=== PATIENT | male | born 1975 | race Caucasian/White ===

== ENCOUNTER 2017-05-25 07:22 | Emergency (ER) | payer OTHER, BC ==
[2017-05-25] MEDS ORDERED: Metoclopramide 10 MG/2 ML SDV IVPUSH ONE (07:36)
[2017-05-25] MEDS ORDERED: HYDROmorphone 1 MG/ML Syringe IVPUSH ONE ×3 (07:36→07:43)
--- NOTE | 2017-05-25 07:41 | EDM.PDOC ---
ED HPI GENERAL MEDICAL PROBLEM - General Chief Complaint: Lower Extremity Injury/Pain Stated Complaint: [facility] Time Seen by Provider: 05/25/17 07:36 Source of Information: Reports: Patient History Limitations: Reports: No Limitations - History of Present Illness INITIAL COMMENTS - FREE TEXT/NARRATIVE: 41-year-old male reports to the ED per ambulance after slipping and falling on his way into work this morning. States he was about 10 feet with from the door to the building when he slipped on the ice falling backwards with his right leg ending up underneath him when he fell. He has severe pain distal tib-fib and ankle area on the right side. Denies hitting his head or losing consciousness. A coworker aided him up and he was able to hop into the building and light on the floor inside the building until the eminence arrived. No previous injuries or fractures to the right lower extremity. Has a history of hypertension for which he is taking his medications this morning also takes a baby aspirin every day and antidepressant daily. Also takes medication for cholesterol lowering. Onset: Today Onset Date: 05/25/17 Onset Time: 06:55 Duration: Minutes: Location: Reports: Lower Extremity, Right (Right distal tib-fib ankle area.) Quality: Reports: Ache, Throbbing Severity: Severe Improves with: Reports: None Worsens with: Reports: Movement Context: Reports: Trauma (Slipped and fell on ice while walking to work this morning.). 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) (Paramedics were not able to establish an IV and therefore he has not received any analgesia at this time) Right Ankle Pain Score (Numeric/FACES): 6 - Related Data Allergies Allergy/AdvReac Type Severity Reaction Status Date / Time Penicillins Allergy Cannot Verified 05/25/17 07:32 Remember lisinopril AdvReac Cough Verified 05/25/17 07:32 Home Meds: Home Meds Atenolol [Atenolol] 25 mg PO DAILY 05/25/17 [History] oxyCODONE HCl/Acetaminophen [Percocet 5-325 mg Tablet] 1 - 2 each PO Q4H PRN # 24 tablet 05/25/17 [Rx] Past Medical History Cardiovascular History: Reports: High Cholesterol, Hypertension Psychiatric History: Reports: Depression (Currently on antidepressant medication.) Social & Family History - Living Situation & Occupation Living situation: Reports: Occupation: Employed Review of Systems - Review of Systems Review Of Systems: See Below Constitutional: Denies: Chills, Diaphoresis, Fever, Weakness, Other Eyes: Reports: No Symptoms Ears: Reports: No Symptoms Nose: Reports: No Symptoms Mouth/Throat: Reports: No Symptoms Respiratory: Reports: No Symptoms Cardiovascular: Reports: No Symptoms GI/Abdominal: Reports: No Symptoms Genitourinary: Reports: No Symptoms Musculoskeletal: Reports: Leg Pain Skin: Reports: No Symptoms (See history pill present illness.) Neurological: Reports: No Symptoms Psychiatric: Reports: No Symptoms ED EXAM, GENERAL - Physical Exam Exam: See Below Exam Limited By: No Limitations General Appearance: Alert, WD/WN, Moderate Distress (In obvious discomfort.) Head: Atraumatic, Normocephalic Neck: Normal Inspection, Supple, Non-Tender, Full Range of Motion Respiratory/Chest: No Respiratory Distress, Lungs Clear, Normal Breath Sounds, No Accessory Muscle Use, Chest Non-Tender, Other Cardiovascular: Normal Peripheral Pulses, Regular Rate, Rhythm, No Murmur, No Rub, Bradycardia Peripheral Pulses: 2+: Posterior Tibial (L), Posterior Tibial (R), Dorsalis Pedis (L), Dorsalis Pedis (R) GI/Abdominal: Normal Bowel Sounds, Soft, Non-Tender, No Organomegaly, No Abnormal Bruit, No Mass Back Exam: Normal Inspection, Full Range of Motion. No: CVA Tenderness (L), CVA Tenderness (R) Extremities: Other (No apparent injury to the left lower extremity. Right lower extremity shows deformity distal tib-fib and ankle particularly the fibula appears to be fractured. Pulses are present but weak dorsalis pedis. Unable to plantarflex or dorsiflex at the ankle due to pain) Neurological: Alert, Oriented, CN II-XII Intact, Normal Cognition, Normal Gait Psychiatric: Normal Affect, Normal Mood Course - Vital Signs Last Recorded V/S: Last Vital Signs Temp 36.3 C 05/25/17 07:29 Pulse 55 L 05/25/17 07:29 Resp 16 05/25/17 07:29 BP 81/43 L 05/25/17 07:29 Pulse Ox 100 05/25/17 07:29 - Orders/Labs/Meds Orders: Active Orders 24 hr Category Date Time Status EKG Documentation Completion [RC] STAT Care 05/25/17 07:44 Active Dextrose 5%-0.9% NaCl [Dextrose 5%-Normal Saline] 1,000 Med 05/25/17 07:45 Active ml IV ASDIRECTED Medication Orders Dextrose/Sodium Chloride (Dextrose 5%-Normal Saline) 1,000 mls @ 150 mls/hr IV ASDIRECTED LASHELL Last Admin: 05/25/17 07:49 Dose: 150 mls/hr Labs: Laboratory Tests 05/25/17 05/25/17 05/25/17 Range/Units 07:40 07:40 07:40 WBC 6.65 (4.23-9.07) K/mm3 RBC 5.33 (4.63-6.08) M/mm3 Hgb 15.3 (13.7-17.5) gm/L Hct 44.3 (40.1-51.0) % MCV 83.1 (79.0-92.2) fl MCH 28.7 (25.7-32.2) pg MCHC 34.5 (32.2-35.5) g/dl RDW Std Deviation 41.6 (35.1-43.9) fL Plt Count 216 (163-337) K/mm3 MPV 10.3 (9.4-12.3) fl Neutrophils % (Manual) 58 (40-60) % Band Neutrophils % 0 (0-10) % Lymphocytes % (Manual) 36 (20-40) % Atypical Lymphs % 0 % Monocytes % (Manual) 3 (2-10) % Eosinophils % (Manual) 3 (0.8-7.0) % Basophils % (Manual) 0 L (0.2-1.2) Platelet Estimate Adequate RBC Morph Comment Normal PT 10.6 (8.0-13.0) SECONDS INR 0.97 APTT 24 (22-36) SECONDS Sodium 140 (136-145) mEq/L Potassium 3.3 L (3.5-5.1) mEq/L Chloride 102 (98-107) mEq/L Carbon Dioxide 30 (21-32) mEq/L Anion Gap 11.3 (5-15) BUN 15 (7-18) mg/dL Creatinine 1.1 (0.7-1.3) mg/dL Est Cr Clr Drug Dosing 89.41 mL/min Estimated GFR (MDRD) > 60 (>60) mL/min BUN/Creatinine Ratio 13.6 L (14-18) Glucose 102 (74-106) mg/dL Calcium 8.8 (8.5-10.1) mg/dL Total Bilirubin 0.4 (0.2-1.0) mg/dL AST 26 (15-37) U/L ALT 52 (16-63) U/L Alkaline Phosphatase 77 (46-116) U/L Total Protein 7.2 (6.4-8.2) g/dl Albumin 3.3 L (3.4-5.0) g/dl Globulin 3.9 gm/dL Albumin/Globulin Ratio 0.9 L (1-2) Meds: Medications Generic Name Dose Route Start Last Admin Trade Name Freq PRN Reason Stop Dose Admin Dextrose/Sodium Chloride 1,000 mls @ 150 mls/hr 05/25/17 07:45 05/25/17 07:49 Dextrose 5%-Normal Saline IV 150 mls/hr ASDIRECTED LASHELL Administration Discontinued Medications Generic Name Dose Route Start Last Admin Trade Name Freq PRN Reason Stop Dose Admin Hydromorphone HCl 1 mg 05/25/17 07:36 Dilaudid IVPUSH 05/25/17 07:37 ONETIME ONE Hydromorphone HCl 0.5 mg 05/25/17 07:43 05/25/17 07:52 Dilaudid IVPUSH 05/25/17 07:44 Not Given ONETIME ONE Hydromorphone HCl 0.5 mg 05/25/17 07:43 05/25/17 07:52 Dilaudid IVPUSH 05/25/17 07:44 Not Given ONETIME ONE Hydromorphone HCl Confirm 05/25/17 07:50 05/25/17 07:51 Dilaudid Administered 05/25/17 07:51 1 mg Dose Administration 1 mg .ROUTE .STK-MED ONE Metoclopramide HCl 10 mg 05/25/17 07:36 05/25/17 07:50 Reglan IVPUSH 05/25/17 07:37 10 mg ONETIME ONE Administration - Radiology Interpretation Free Text/Narrative:: 41-year-old male slipped and fell on the ice on walk upon walking into work this morning. He landed with his right ankle and foot up underneath his body when he hit the ground. Has pain and deformity to the distal right tib-fib compound fracture. Plan IV D5 normal saline at 150 mils per hour. Routine labs will be collected. X-ray of the right tib-fib and ankle to be obtained will give Dilaudid 1 mg IV and Reglan 10 mg IV for pain and nausea relief. - Re-Assessments/Exams Free Text/Narrative Re-Assessment/Exam: 05/25/17 08:16 x-rays confirm a spiral fractures of the distal fibula and tibia. Position and alignment are good. At this time orthopedic services are not available but Dr. Castellanos will be back tomorrow. Plan will be to immobilize his right tib-fib and ankle in a posterior slab and stirrup orthoglass splint. He will be nonweightbearing crutch walking. We'll see if we get him an appointment with Dr. Castellanos tomorrow. Departure - Departure Time of Disposition: 09:40 Disposition: Home, Self-Care 01 Condition: Fair Clinical Impression: Closed fracture of tibia AND fibula - Discharge Information Prescriptions: oxyCODONE HCl/Acetaminophen [Percocet 5-325 mg Tablet] 1 - 2 each PO Q4H PRN # 24 tablet PRN Reason: pain relief. Instructions: Fibular Fracture Rehab-[facility], Tibial Fracture, Adult Referrals: Cristina Hughes MD [Primary Care Provider] - Forms: ED Department Discharge Additional Instructions: ED HPI GENERAL MEDICAL PROBLEM - General Chief Complaint: Lower Extremity Injury/Pain Stated Complaint: [facility] Time Seen by Provider: 05/25/17 07:36 Source of Information: Reports: Patient History Limitations: Reports: No Limitations - History of Present Illness INITIAL COMMENTS - FREE TEXT/NARRATIVE: 41-year-old male reports to the ED per ambulance after slipping and falling on his way into work this morning. States he was about 10 feet with from the door to the building when he slipped on the ice falling backwards with his right leg ending up underneath him when he fell. He has severe pain distal tib-fib and ankle area on the right side. Denies hitting his head or losing consciousness. A coworker aided him up and he was able to hop into the building and light on the floor inside the building until the eminence arrived. No previous injuries or fractures to the right lower extremity. Has a history of hypertension for which he is taking his medications this morning also takes a baby aspirin every day and antidepressant daily. Also takes medication for cholesterol lowering. Onset: Today Onset Date: 05/25/17 Onset Time: 06:55 Duration: Minutes: Location: Reports: Lower Extremity, Right (Right distal tib-fib ankle area.) Quality: Reports: Ache, Throbbing Severity: Severe Improves with: Reports: None Worsens with: Reports: Movement Context: Reports: Trauma (Slipped and fell on ice while walking to work this morning.). 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) (Paramedics were not able to establish an IV and therefore he has not received any analgesia at this time) Right Ankle Pain Score (Numeric/FACES): 6 - Related Data Allergies Allergy/AdvReac Type Severity Reaction Status Date / Time Penicillins Allergy Cannot Verified 05/25/17 07:32 Remember lisinopril AdvReac Cough Verified 05/25/17 07:32 Home Meds: Home Meds Atenolol [Atenolol] 25 mg PO DAILY 05/25/17 [History] oxyCODONE HCl/Acetaminophen [Percocet 5-325 mg Tablet] 1 - 2 each PO Q4H PRN # 24 tablet 05/25/17 [Rx] Past Medical History Cardiovascular History: Reports: High Cholesterol, Hypertension Psychiatric History: Reports: Depression (Currently on antidepressant medication.) Social & Family History - Living Situation & Occupation Living situation: Reports: Occupation: Employed Review of Systems - Review of Systems Review Of Systems: See Below Constitutional: Denies: Chills, Diaphoresis, Fever, Weakness, Other Eyes: Reports: No Symptoms Ears: Reports: No Symptoms Nose: Reports: No Symptoms Mouth/Throat: Reports: No Symptoms Respiratory: Reports: No Symptoms Cardiovascular: Reports: No Symptoms GI/Abdominal: Reports: No Symptoms Genitourinary: Reports: No Symptoms Musculoskeletal: Reports: Leg Pain Skin: Reports: No Symptoms (See history pill present illness.) Neurological: Reports: No Symptoms Psychiatric: Reports: No Symptoms ED EXAM, GENERAL - Physical Exam Exam: See Below Exam Limited By: No Limitations General Appearance: Alert, WD/WN, Moderate Distress (In obvious discomfort.) Head: Atraumatic, Normocephalic Neck: Normal Inspection, Supple, Non-Tender, Full Range of Motion Respiratory/Chest: No Respiratory Distress, Lungs Clear, Normal Breath Sounds, No Accessory Muscle Use, Chest Non-Tender, Other Cardiovascular: Normal Peripheral Pulses, Regular Rate, Rhythm, No Murmur, No Rub, Bradycardia Peripheral Pulses: 2+: Posterior Tibial (L), Posterior Tibial (R), Dorsalis Pedis (L), Dorsalis Pedis (R) GI/Abdominal: Normal Bowel Sounds, Soft, Non-Tender, No Organomegaly, No Abnormal Bruit, No Mass Back Exam: Normal Inspection, Full Range of Motion. No: CVA Tenderness (L), CVA Tenderness (R) Extremities: Other (No apparent injury to the left lower extremity. Right lower extremity shows deformity distal tib-fib and ankle particularly the fibula appears to be fractured. Pulses are present but weak dorsalis pedis. Unable to plantarflex or dorsiflex at the ankle due to pain) Neurological: Alert, Oriented, CN II-XII Intact, Normal Cognition, Normal Gait Psychiatric: Normal Affect, Normal Mood Course - Vital Signs Last Recorded V/S: Last Vital Signs Temp 36.3 C 05/25/17 07:29 Pulse 55 L 05/25/17 07:29 Resp 16 05/25/17 07:29 BP 81/43 L 05/25/17 07:29 Pulse Ox 100 05/25/17 07:29 - Orders/Labs/Meds Orders: Active Orders 24 hr Category Date Time Status EKG Documentation Completion [RC] STAT Care 05/25/17 07:44 Active Tibia Fibula Rt [CR] Stat Exams 05/25/17 07:37 Taken Dextrose 5%-0.9% NaCl [Dextrose 5%-Normal Saline] 1,000 Med 05/25/17 07:45 Active ml IV ASDIRECTED Medication Orders Dextrose/Sodium Chloride (Dextrose 5%-Normal Saline) 1,000 mls @ 150 mls/hr IV ASDIRECTED LASHELL Last Admin: 05/25/17 07:49 Dose: 150 mls/hr Labs: Laboratory Tests 05/25/17 05/25/17 05/25/17 Range/Units 07:40 07:40 07:40 WBC 6.65 (4.23-9.07) K/mm3 RBC 5.33 (4.63-6.08) M/mm3 Hgb 15.3 (13.7-17.5) gm/L Hct 44.3 (40.1-51.0) % MCV 83.1 (79.0-92.2) fl MCH 28.7 (25.7-32.2) pg MCHC 34.5 (32.2-35.5) g/dl RDW Std Deviation 41.6 (35.1-43.9) fL Plt Count 216 (163-337) K/mm3 MPV 10.3 (9.4-12.3) fl Neutrophils % (Manual) 58 (40-60) % Band Neutrophils % 0 (0-10) % Lymphocytes % (Manual) 36 (20-40) % Atypical Lymphs % 0 % Monocytes % (Manual) 3 (2-10) % Eosinophils % (Manual) 3 (0.8-7.0) % Basophils % (Manual) 0 L (0.2-1.2) Platelet Estimate Adequate RBC Morph Comment Normal PT 10.6 (8.0-13.0) SECONDS INR 0.97 APTT 24 (22-36) SECONDS Sodium 140 (136-145) mEq/L Potassium 3.3 L (3.5-5.1) mEq/L Chloride 102 (98-107) mEq/L Carbon Dioxide 30 (21-32) mEq/L Anion Gap 11.3 (5-15) BUN 15 (7-18) mg/dL Creatinine 1.1 (0.7-1.3) mg/dL Est Cr Clr Drug Dosing 89.41 mL/min Estimated GFR (MDRD) > 60 (>60) mL/min BUN/Creatinine Ratio 13.6 L (14-18) Glucose 102 (74-106) mg/dL Calcium 8.8 (8.5-10.1) mg/dL Total Bilirubin 0.4 (0.2-1.0) mg/dL AST 26 (15-37) U/L ALT 52 (16-63) U/L Alkaline Phosphatase 77 (46-116) U/L Total Protein 7.2 (6.4-8.2) g/dl Albumin 3.3 L (3.4-5.0) g/dl Globulin 3.9 gm/dL Albumin/Globulin Ratio 0.9 L (1-2) Meds: Medications Generic Name Dose Route Start Last Admin Trade Name Freq PRN Reason Stop Dose Admin Dextrose/Sodium Chloride 1,000 mls @ 150 mls/hr 05/25/17 07:45 05/25/17 07:49 Dextrose 5%-Normal Saline IV 150 mls/hr ASDIRECTED LASHELL Administration Discontinued Medications Generic Name Dose Route Start Last Admin Trade Name Rosy PRN Reason Stop Dose Admin Hydromorphone HCl 1 mg 05/25/17 07:36 Dilaudid IVPUSH 05/25/17 07:37 ONETIME ONE Hydromorphone HCl 0.5 mg 05/25/17 07:43 05/25/17 07:52 Dilaudid IVPUSH 05/25/17 07:44 Not Given ONETIME ONE Hydromorphone HCl 0.5 mg 05/25/17 07:43 05/25/17 07:52 Dilaudid IVPUSH 05/25/17 07:44 Not Given ONETIME ONE Hydromorphone HCl Confirm 05/25/17 07:50 05/25/17 07:51 Dilaudid Administered 05/25/17 07:51 1 mg Dose Administration 1 mg .ROUTE .STK-MED ONE Metoclopramide HCl 10 mg 05/25/17 07:36 05/25/17 07:50 Reglan IVPUSH 05/25/17 07:37 10 mg ONETIME ONE Administration - Radiology Interpretation Free Text/Narrative:: 41-year-old male slipped and fell on the ice on walk upon walking into work this morning. He landed with his right ankle and foot up underneath his body when he hit the ground. Has pain and deformity to the distal right tib-fib compound fracture. Plan IV D5 normal saline at 150 mils per hour. Routine labs will be collected. X-ray of the right tib-fib and ankle to be obtained will give Dilaudid 1 mg IV and Reglan 10 mg IV for pain and nausea relief. - Re-Assessments/Exams Free Text/Narrative Re-Assessment/Exam: 05/25/17 08:16 x-rays confirm a spiral fractures of the distal fibula and tibia. Position and alignment are good. At this time orthopedic services are not available but Dr. Castellanos will be back tomorrow. Plan will be to immobilize his right tib-fib and ankle in a posterior slab and stirrup orthoglass splint. He will be nonweightbearing crutch walking. We'll see if we get him an appointment with Dr. Castellanos tomorrow. Departure - Departure Disposition: Home, Self-Care 01 Condition: Fair Clinical Impression: Closed fracture of tibia AND fibula - Discharge Information Prescriptions: oxyCODONE HCl/Acetaminophen [Percocet 5-325 mg Tablet] 1 - 2 each PO Q4H PRN # 24 tablet PRN Reason: pain relief. Forms: ED Department Discharge - My Orders Last 24 Hours: My Active Orders 05/25/17 07:37 Tibia Fibula Rt [CR] Stat 05/25/17 07:44 EKG Documentation Completion [RC] STAT 05/25/17 07:45 Dextrose 5%-0.9% NaCl [Dextrose 5%-Normal Saline] 1,000 ml IV ASDIRECTED - Assessment/Plan Last 24 Hours: My Active Orders 05/25/17 07:37 Tibia Fibula Rt [CR] Stat 05/25/17 07:44 EKG Documentation Completion [RC] STAT 05/25/17 07:45 Dextrose 5%-0.9% NaCl [Dextrose 5%-Normal Saline] 1,000 ml IV ASDIRECTED Evaluation in the emergency him this morning in regards to injury to the right lower leg that occurred while walking into work this morning. A slip on ice cause you to fall with body weight likely landing on the right lower extremity. X-rays reveal spiral fractures of both the distal tibia and fibula that are close and actually fracture fragments are well aligned. Treatment today is a below-knee Ortho-Glass splint to maintain current position of broken bones. Treatment over the weekend is to elevate the leg is much as possible with ice pack over the splint for one half hour out of every 4 hours for today and all tomorrow. May use Motrin 600 mg every 6 hours to help with pain relief and then Percocet 5/3/25 milligram tablets one or 2 every 4-6 hours as well for pain relief. Follow-up will be required with orthopedic surgeon Dr. Castellanos. Care Plan Goals: Dr. Castellanos is away until tomorrow. We have left her number with his office and they will call you sometime tomorrow with an appointment time either for tomorrow or first thing Monday morning. He will be off work for a minimum of 4- 6 weeks. - My Orders Last 24 Hours: My Active Orders 05/25/17 07:44 EKG Documentation Completion [RC] STAT 05/25/17 07:45 Dextrose 5%-0.9% NaCl [Dextrose 5%-Normal Saline] 1,000 ml IV ASDIRECTED - Assessment/Plan Last 24 Hours: My Active Orders 05/25/17 07:44 EKG Documentation Completion [RC] STAT 05/25/17 07:45 Dextrose 5%-0.9% NaCl [Dextrose 5%-Normal Saline] 1,000 ml IV ASDIRECTED
[2017-05-25] MEDS ORDERED: Dextrose 5%-0.9% NaCl 1,000 ML IV SCH (07:45)
[2017-05-25] MEDS ORDERED: HYDROmorphone 0.5 MG/0.5 ML SYRINGE ONE (07:50)
--- NOTE | 2017-05-25 08:49 | CR ---
Right tibia and fibula: AP and lateral views of the right tibia and fibula were obtained. Comparison: No previous study. Comminuted fracture is identified within the distal tibia involving the distal diaphysis. Distal fibular fracture also noted through the diaphysis. Mild displacement is seen. Soft tissue swelling is noted. No extension of the fracture lines into the ankle mortise is seen. Impression: 1. Slightly displaced distal tibial and fibular fractures. 2. Soft tissue swelling. Diagnostic code #3
== END 2017-05-25 09:50 | disposition home or self-care (01) ==
LOC: JD.ED 07:22
DX: S82.301A Unspecified fracture of lower end of right tibia, initial encounter for closed fracture (principal); S82.831A Other fracture of upper and lower end of right fibula, initial encounter for closed fracture; I10 Essential (primary) hypertension; W00.0XXA Fall on same level due to ice and snow, initial encounter; Y92.61 Building [any] under construction as the place of occurrence of the external cause; Z79.899 Other long term (current) drug therapy; Y99.0 Civilian activity done for income or pay
CPT/HCPCS: 29515; 36415; 73590; 80053; 85025; 85610; 85730; 93005; 96361; 96374; 96375; 99285; J1170; J2765; J7042

== ENCOUNTER 2017-06-01 12:08 | Day surgery (SDC) | payer OTHER, BC ==
[~2017-06-01 12:08] MED LIST: EPINEPHrine 1 MG/ML SDV ONE; Lidocaine 1% 4 ML ONE; Ropivacaine 0.5% 5 MG/ML 30 ML SDV ONE
[2017-06-01] MEDS ORDERED: Atenolol 25 MG Tab PO ONE (13:00)
--- NOTE | 2017-06-01 13:07 | PCM.PREANE ---
Preanesthetic Assessment - Procedure Proposed Procedure: ORIF RIGHT DISTAL TIBIA FRACTURE - Anesthesia/Transfusion/Family Hx Anesthesia History: No Prior Anesthesia Family History of Anesthesia Reaction: No Transfusion History: No Prior Transfusion(s) Intubation History: Unknown - Review of Systems General: No Symptoms Pulmonary: No Symptoms Cardiovascular: Other (HTN ) Gastrointestinal: Other (GERD ) Neurological: No Symptoms Other: Reports: None, Depression - Physical Assessment NPO Status Date: 05/31/17 NPO Status Time: 03:00 Pulse: 96 Blood Pressure: 111/67 Vital Signs: Last Vital Signs Temp Pulse 96 06/01/17 12:49 Resp BP 111/67 06/01/17 12:49 Pulse Ox ASA Class: 2 Mental Status: Alert & Oriented x3 Airway Class: Mallampati = 2 Dentition: Reports: Normal Dentition Thyro-Mental Finger Breadths: 3 Mouth Opening Finger Breadths: 3 ROM/Head Extension: Full Lungs: Clear to Auscultation, Normal Respiratory Effort Cardiovascular: Regular Rate, Regular Rhythm - Allergies Allergies/Adverse Reactions: Allergies Allergy/AdvReac Type Severity Reaction Status Date / Time Penicillins Allergy Cannot Verified 05/31/17 13:43 Remember lisinopril AdvReac Cough Verified 05/31/17 13:43 - Blood Blood Available: No Product(s) Available: None - Anesthesia Plan Pre-Op Medication Ordered: None Beta Sincere: Atenolol Med Last Dose Date: 06/01/17 Med Last Dose Time: 12:50 - Acknowledgements Anesthesia Type Planned: General Anesthesia, Regional Block Pt an Appropriate Candidate for the Planned Anesthesia: Yes Alternatives and Risks of Anesthesia Discussed w Pt/Guardian: Yes Pt/Guardian Understands and Agrees with Anesthesia Plan: Yes PreAnesthesia Questionnaire HEENT History: Reports: Impaired Vision Cardiovascular History: Reports: High Cholesterol, Hypertension, Other (See Below) Other Cardiovascular History: palpitations Respiratory History: Reports: None Gastrointestinal History: Reports: Chronic Constipation, GERD Genitourinary History: Reports: Other (See Below) Other Genitourinary History: difficultly urinating, hematuria 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 Musculoskeletal History: Reports: None Neurological History: Reports: Other (See Below) Other Neuro History: tremor Psychiatric History: Reports: Depression Endocrine/Metabolic History: Reports: Obesity/BMI 30+ Hematologic History: Reports: None Immunologic History: Reports: None Oncologic (Cancer) History: Reports: None - Past Surgical History Head Surgeries/Procedures: Reports: None HEENT Surgical History: Reports: None Respiratory Surgical History: Reports: None GI Surgical History: Reports: None Female Surgical History: Reports: None Male Surgical History: Reports: None Endocrine Surgical History: Reports: None Musculoskeletal Surgical History: Reports: None Oncologic Surgical History: Reports: None Dermatological Surgical History: Reports: Other (See Below) - SUBSTANCE USE Smoking Status *Q: Former Smoker Second Hand Smoke Exposure: No Recreational Drug Use History: No - HOME MEDS Home Medications: Home Meds Atenolol 25 mg PO DAILY 05/25/17 [History] Cyclobenzaprine [Flexeril] 10 mg PO TID PRN 05/31/17 [History] Losartan/Hydrochlorothiazide [Losartan-HCTZ 100-25 MG] 1 tab PO DAILY 05/31/17 [ History] Multivitamin [Poly-Vitamin] 1 tab PO DAILY 05/31/17 [History] Pravastatin Sodium 20 mg PO DAILY 05/31/17 [History] Sertraline [Zoloft] 50 mg PO DAILY 05/31/17 [History] amLODIPine Besylate [Amlodipine Besylate] 5 mg PO DAILY 05/31/17 [History] Aspirin 325 mg PO BID #84 tab 06/01/17 [Rx] oxyCODONE HCl/Acetaminophen [Percocet 5-325 mg Tablet] 1 - 2 each PO Q6H PRN # 40 tablet 06/01/17 [Rx] - CURRENT (IN HOUSE) MEDS Current Meds: Current Medications Atenolol (Tenormin) 25 mg PO ONETIME ONE Stop: 06/01/17 13:01 Last Admin: 06/01/17 12:49 Dose: 25 mg Discontinued Medications Epinephrine HCl (Adrenalin) Confirm Administered Dose 1 mg .ROUTE .STK-MED ONE Stop: 06/01/17 10:21 Lidocaine HCl (Xylocaine-Mpf 1%) Confirm Administered Dose 4 mls @ as directed .ROUTE .STK-MED ONE Stop: 06/01/17 10:21 Ropivacaine (Naropin 0.5%) Confirm Administered Dose 30 ml .ROUTE .STK-MED ONE Stop: 06/01/17 10:21
[2017-06-01] MEDS ORDERED: Bupivacaine 0.25% 30 ML SDV ONE (13:11)
[2017-06-01] MEDS ORDERED: Propofol 200 MG/20 ML SDV ONE (13:22)
[2017-06-01] MEDS ORDERED: fentaNYL 250 MCG/5 ML SDV ONE (13:23)
[2017-06-01] MEDS ORDERED: Midazolam 1 MG/ML 2 ML SDV ONE (13:23)
[2017-06-01] MEDS ORDERED: Dexamethasone 4 MG/ML SDV ONE (13:24)
[2017-06-01] MEDS ORDERED: Lidocaine 1% 4 ML ONE (13:24)
[2017-06-01] MEDS ORDERED: Ondansetron 4 MG/2 ML SDV ONE (13:24)
[2017-06-01] MEDS ORDERED: ceFAZolin 1 GM Vial ONE (13:24)
[2017-06-01] MEDS ORDERED: Lactated Ringers 1,000 ML ONE (14:04)
[2017-06-01] MEDS ORDERED: Lidocaine 1%/Sod Bicarbonate in NS 8.4% 1 ML Syringe IDERM PRN (14:10)
[2017-06-01] MEDS ORDERED: Sodium Chloride 0.9% 10 ML Syringe FLUSH PRN (14:10)
[2017-06-01] MEDS ORDERED: Lactated Ringers 1,000 ML IV SCH (14:15)
--- NOTE | 2017-06-01 14:16 | PCM.SN ---
- Free Text/Narrative Note: Date: 06/01/17 Time Out: 1326 Start: 1329 Stop: 1336 Procedure: Right Popliteal block under Ultra Sound Guidance for postoperative pain control requested by Dr. Castellanos. Surgical Procedure: Right ORIF with Plating versus intramedullary nailing of right distal tibia fracture. Chart reviewed, allergies noted, Procedure risk/benefits discussed with patient , consent obtained. Monitors/alarms on and O2 placed via nasal cannula at 2LPM, time out performed. Patient placed in prone position, after the following medications administered: Versed 2mg IV given at 1319, Fentanyl 50mcg IV @ 1320, and 1326 (Vital signs stable throughout the procedure, please refer to nursing notes.) Right Popliteal fossa and area surrounding cleaned with 3 chloropreps. Under US guidance popliteal artery/vein/common peroneal nerve and tibial nerves located. US probe moved cephalad to the joining of both the peroneal/tibial nerves to the sciatic nerve. 1% lidocaine used to localize: 3mls total. Under US guidance, 4 inch 21 gauge stimiplex needle advanced to nerve bundle. Incremental dosing noted with negative aspiration of 0.5% ropivacaine/1:200,000 epinephrine, total volume = 30mls. Patient tolerated procedure well. Thank you, Trent Pennington CRNA
[2017-06-01] MEDS ORDERED: HYDROmorphone 1 MG/ML Syringe ONE (14:46)
[2017-06-01] MEDS ORDERED: HYDROmorphone 0.5 MG/0.5 ML Syringe IVPUSH PRN (15:41)
[2017-06-01] MEDS ORDERED: diphenhydrAMINE 50 MG/ML SDV IVPUSH PRN (15:41)
[2017-06-01] MEDS ORDERED: fentaNYL 100 MCG/2 ML SDV IVPUSH PRN (15:41)
[2017-06-01] MEDS ORDERED: Ondansetron 4 MG/2 ML SDV IVPUSH PRN (15:41)
--- NOTE | 2017-06-01 15:44 | PCM.POSTAN ---
POST ANESTHESIA ASSESSMENT - MENTAL STATUS Mental Status: Alert - VITAL SIGNS Pulse Rate: 93 SaO2: 92 Resp Rate: 15 Blood Pressure: 92/45 Temperature: 36.8 C - RESPIRATORY Respiratory Status: Respiratory Rate WNL, Airway Patent, O2 Saturation Stable - CARDIOVASCULAR CV Status: Pulse Rate WNL, Blood Pressure Stable - GASTROINTESTINAL GI Status: No Symptoms - PAIN Pain Score: 0 - POST OP HYDRATION Hydration Status: Adequate & Stable
[2017-06-01] MEDS ORDERED: Acetaminophen/oxyCODONE 325-5 MG Tab PO ONE (16:23)
--- NOTE | 2017-06-01 17:01 | CR ---
Right ankle: 18 fluoroscopic spot views were obtained utilizing C-arm device in the operating suite. Comparison: Prior CT right ankle study of 05/31/17. Study shows placement of plate and screws affixing previous distal tibial fracture. Fluoroscopy time given as 119.2 seconds. Impression: 1. Reduction and fixation of previous described fracture. Diagnostic code #2
--- NOTE | 2017-06-01 17:29 | PCM48HPAN ---
Post Anesthesia Note - EVALUATION WITHIN 48HRS OF ANESTHETIC Vital Signs in Normal Range: Yes Patient Participated in Evaluation: Yes Respiratory Function Stable: Yes Airway Patent: Yes Cardiovascular Function Stable: Yes Hydration Status Stable: Yes Pain Control Satisfactory: Yes Nausea and Vomiting Control Satisfactory: Yes Mental Status Recovered: Yes
[2017-06-01] MEDS ORDERED: Acetaminophen/oxyCODONE 325-5 MG Tab ONE (17:57)
--- NOTE | 2017-06-05 21:04 | PCM.OPNOTE ---
- General Post-Op/Procedure Note Date of Surgery/Procedure: 06/01/17 Operative Procedure(s): open reduction internal fixation of right distal tibial shaft fracture Pre Op Diagnosis: right distal tibial shaft fracture Post-Op Diagnosis: Same Anesthesia Technique: General LMA, Local Primary Surgeon: Mario Castellanos Anesthesia Provider: Joey Montesinos Synoptic Meteorologist: Kathryn Barber in mLs: 5 Complications: None Condition: Good
--- NOTE | 2017-06-05 21:48 | OR ---
DATE OF OPERATION: 06/01/2017 SURGEON: Mario Castellanos MD OPERATION PERFORMED: Open reduction and internal fixation of right distal tibial shaft fracture. PREOPERATIVE DIAGNOSIS: Right distal tibia shaft fracture. POSTOPERATIVE DIAGNOSIS: Right distal tibia shaft fracture. ANESTHESIA TECHNIQUE: General. ANESTHESIA PROVIDER: Joey Montesinos. RECHECKER: Kathryn Barber PA-C. ESTIMATED BLOOD LOSS: 5 mL. COMPLICATIONS: None. CONDITION: Stable. DESCRIPTION OF PROCEDURE: The patient was identified in the preop holding area. Proper site was marked and identified by the surgeon. The patient was taken back to the operating theater, where after adequate anesthesia, the patient's right lower extremity had a nonsterile tourniquet applied and it was then sterilely prepped and draped in the usual sterile fashion. OR time-out was performed. The patient received 2 g IV Ancef. At this time, right lower extremity was exsanguinated. Tourniquet was insufflated to 250 mmHg. At this time, standard incision was made over the medial malleolus and care was taken to protect the neurovascular bundle and retracted this anteriorly. This was taken all the way down to the medial malleolar site making sure not to disrupt the periosteum. At this time, a large elevator was used up the medial crest of the tibia subcutaneously and a Blair 14 hole VariAx distal medial tibial locking plate was placed under direct fluoroscopy. At this time, a cortical screw was then placed proximally just proximal to the apex of the fracture to compress the fracture and align the tibial shaft fracture. At this time, under direct visualization, it was found to have good placement of the plate and good apposition of the plate to the bone with good reduction of the tibial fracture. At this time, starting distally, I was able to obtain good fixation with a cortical screw distally to make sure the plate was abutting the bone distally. At this time, the fracture showed good reduction still. Starting distally, I did place 3.5 locking screws through the plate and was able to obtain five 3.5 locking screws distally. At this time, I then placed locking screws in the shaft making sure to get 8 cortices above the fracture site. At this time, it was found have adequate reduction and fixation with near anatomic reduction and fixation on both AP and lateral views both at the ankle and proximally. Once it was found to have adequate fixation, adequate saline was irrigated through the medial wound. A 2-0 Vicryl was used subcutaneously and 3-0 Nylon was used for the skin. The patient was placed in a sterile soft dressing as well as a posterior slab splint and sent to PACU in stable condition. ANESTHESIA: MMPJ /[id number]
== END 2017-06-01 20:10 | disposition home or self-care (01) ==
LOC: JD.SDS 12:08
PROVIDERS: ATTEND Orthopaedic Surgery
DX: S82.301A Unspecified fracture of lower end of right tibia, initial encounter for closed fracture (principal); I10 Essential (primary) hypertension; E78.5 Hyperlipidemia, unspecified; F32.9 Major depressive disorder, single episode, unspecified; K21.9 Gastro-esophageal reflux disease without esophagitis; E66.9 Obesity, unspecified; W00.0XXA Fall on same level due to ice and snow, initial encounter; Y93.29 Activity, other involving ice and snow; Y92.89 Other specified places as the place of occurrence of the external cause; Z88.0 Allergy status to penicillin; Z88.8 Allergy status to other drugs, medicaments and biological substances; Z79.899 Other long term (current) drug therapy; Z79.82 Long term (current) use of aspirin; Z87.891 Personal history of nicotine dependence; Z68.34 Body mass index [BMI] 34.0-34.9, adult
CPT/HCPCS: 27758; 76000; A9270; C1713; J0171; J0690; J1100; J1170; J2250; J2405; J2795; J3010; J3490; J7120; J2704

== ENCOUNTER 2023-02-13 10:02 | Emergency (ER) | payer BC ==
[2023-02-13] MEDS ORDERED: Sodium Chloride 0.9% 10 ML Syringe FLUSH PRN (10:28)
[2023-02-13 10:44] LABS: BASOPHILS ABSOLUTE AUTO 0.1 K/mm3 (0.0-0.2); BASOPHILS PERCENT AUTO 0.8 % (0.0-1.0); EOSINOPHILS ABSOLUTE AUTO 0.2 K/mm3 (0.0-0.4); EOSINOPHILS PERCENT AUTO 2.9 % (0.0-6.0); HEMATOCRIT 46.3 % (42.0-52.0); HEMOGLOBIN 15.8 gm/dl (14.0-18.0); IMMATURE GRAN ABSOLUTE AUTO 0.02 K/mm3 (0.00-0.05); IMMATURE GRAN PERCENT AUTO 0.3 % (0.0-0.4); LYMPHOCYTES ABSOLUTE AUTO 1.7 K/mm3 (1.0-4.8); LYMPHOCYTES PERCENT AUTO 26.6 % (24.0-44.0); MEAN CORPUSCULAR HEMOGLOBIN 28.9 pg (28.0-32.0); MEAN CORPUSCULAR HGB CONC 34.1 g/dl (32.0-36.0); MEAN CORPUSCULAR VOLUME 84.6 fl (83.0-99.0); MEAN PLATELET VOLUME 9.8 fl (9.4-12.4); MONOCYTES ABSOLUTE AUTO 0.8 K/mm3 (0.0-0.8); MONOCYTES PERCENT AUTO 12.4 % (0.0-8.0); NEUTROPHILS ABSOLUTE AUTO 3.7 K/mm3 (1.8-7.7); PLATELET COUNT,PLT 203 K/mm3 (150-400); RED BLOOD CELL COUNT 5.47 M/mm3 (4.52-5.90); WHITE BLOOD CELL COUNT,WBC 6.53 K/mm3 (3.9-11.3)
[2023-02-13 11:06] LABS: A/G RATIO 0.9 (1-2); ALBUMIN 3.8 g/dl (3.4-5.0); ANION GAP 14.5 (5-15); BILIRUBIN TOTAL 0.5 mg/dL (0.2-1.0); BUN/CREATININE RATIO 15.6 (14-18); CREATININE 0.9 mg/dL (0.7-1.3); EST CRCL DRUG DOSING (CG) 102.52 mL/min; POTASSIUM,K 3.5 mEq/L (3.5-5.1); PROTEIN TOTAL,TP 7.9 g/dl (6.4-8.2)
[2023-02-13] MEDS ORDERED: Heparin Sodium 5,000 Units/ML Vial IVPUSH ONE (11:27)
[2023-02-13] MEDS ORDERED: Aspirin 81 MG Tab.Chew PO ONE (11:30)
[2023-02-13] MEDS ORDERED: Heparin Sodium/D5W 25,000 UNITS/500 ML BAG IV SCH ×2 (11:30→11:45)
== END 2023-02-13 13:55 ==
LOC: JD.ED 10:02
DX: I21.4 Non-ST elevation (NSTEMI) myocardial infarction (principal); E78.00 Pure hypercholesterolemia, unspecified; I10 Essential (primary) hypertension; K21.9 Gastro-esophageal reflux disease without esophagitis; E66.9 Obesity, unspecified; Z79.82 Long term (current) use of aspirin; Z79.84 Long term (current) use of oral hypoglycemic drugs; Z79.899 Other long term (current) drug therapy; Z88.0 Allergy status to penicillin; Z88.8 Allergy status to other drugs, medicaments and biological substances
CPT/HCPCS: 36415; 71045; 80053; 84484; 85025; 85379; 93005; 96365; 96366; 99285; A9270; J1644; J3490; 93010; 99284